=== PATIENT | male | born 1990 | race African-American/Black ===

== ENCOUNTER 2024-08-07 11:26 | Emergency (ER) | payer OTHER, SELFPAY ==
[2024-08-07 11:37] VITALS: BP 169/105
[2024-08-07 11:46] VITALS: BMI 20.4
[2024-08-07 12:24] LABS: % Basophils 0.4 % (0-2); % Eosinophils 0.8 % (0-6); % Immature Granulocytes 0.4 % (0-0.5); % Lymphocytes 11.6 % (20.5-51.1); % Monocytes 4.8 % (1.7-9.3); Absolute Basophils 0.1 10^3/uL (0-0.2); Absolute Eosinophils 0.1 10^3/uL (0-0.7); Absolute Immature Granulocytes 0.1 10^3/uL (0-0.05); Absolute Lymphocytes 1.4 10^3/uL (1.2-3.4); Absolute Monocytes 0.6 10^3/uL (0.1-0.6); Absolute Neutrophils 10.1 10^3/uL (1.4-6.5); Hematocrit 49.6 % (39.0-52.0); Hemoglobin 17.1 g/dL (13.0-18.0); Mean Corp Hgb Conc. 34.5 g/dL (33.0-37.0); Mean Corpuscular Hgb 31.4 pg (27.0-31.0); Nucleated Red Blood Cells % 0 % (-); Platelet Count 232 10^3/uL (130-400); Red Blood Cell Count 5.45 10^6/uL (4.70-6.10); Red Cell Dist. Width 11.9 % (11.5-14.5); White Blood Cell Count 12.4 10^3/uL (4.8-10.8)
[2024-08-07 12:34] LABS: ALT (SGPT) 60 U/L (0-50); AST (SGOT) 47 U/L (17-59); Albumin 4.7 g/dl (3.5-5.0); Alkaline Phosphatase 77 U/L (38-126); Blood Urea Nitrogen 18 mg/dl (9-20); Carbon Dioxide 32 mmol/L (22-30); Chloride 97 mmol/L (98-107); Estimated Creatinine Clearance 91 ml/min; Glucose 109 mg/dl (70-99); Lipase 88 U/L (23-300); Potassium 4.4 mmol/L (3.5-5.1); Sodium 141 mmol/L (135-145); Total Bilirubin 0.3 mg/dl (0.2-1.3); Total Protein 8.1 g/dl (6.3-8.2); eGFR > 60.00
[2024-08-07 13:00] VITALS: BP 138/119
[2024-08-07] MEDS: TYLENOL 1000 MG PO (13:19)
[2024-08-07] MEDS: OMNIPAQUE 50 ML PO (13:56)
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
[2024-08-07] MEDS: TORADOL 30 MG IV (15:11)
[2024-08-07 15:13] VITALS: BP 142/93
[2024-08-07 16:00] VITALS: BP 137/112
[2024-08-07] MEDS: MORPHINE SULFATE 4 MG IV (16:21)
[2024-08-07] MEDS: SENOKOT 17.2 MG PO (19:02)
[2024-08-07] MEDS: MIRALAX 17 GRAMS PO (19:02)
[2024-08-07 19:03] VITALS: BP 129/71
== END 2024-08-07 20:45 | disposition home or self-care (01) ==
LOC: EMR 11:26
PROVIDERS: EMERGENCY PHYSICIAN Emergency Medicine
DX: K59.00 Constipation, unspecified (principal)
CPT/HCPCS: 99285; 96374; 96375; 74177; 80053; 83690; 85025; 93005; Q9967

== ENCOUNTER 2024-08-07 22:28 | Emergency (ER) | payer OTHER, SELFPAY ==
[2024-08-07 22:29] VITALS: BMI 20.9
[2024-08-07 22:32] VITALS: BP 135/84
[2024-08-07] MEDS: NSS 1000 IV (23:04)
[2024-08-07 23:17] LABS: % Basophils 0.4 % (0-2); % Eosinophils 0.4 % (0-6); % Immature Granulocytes 0.4 % (0-0.5); % Lymphocytes 13.4 % (20.5-51.1); % Monocytes 8.3 % (1.7-9.3); % Neutrophils 77.1 % (42.2-75.2); Absolute Lymphocytes 1.4 10^3/uL (1.2-3.4); Absolute Monocytes 0.9 10^3/uL (0.1-0.6); Absolute Neutrophils 7.9 10^3/uL (1.4-6.5); Hematocrit 43.5 % (39.0-52.0); Hemoglobin 15.5 g/dL (13.0-18.0); Mean Corp Hgb Conc. 35.6 g/dL (33.0-37.0); Mean Corpuscular Hgb 30.2 pg (27.0-31.0); Mean Corpuscular Volume 84.8 fL (80.0-94.0); Nucleated Red Blood Cells % 0 % (-); Platelet Count 253 10^3/uL (130-400); Red Blood Cell Count 5.13 10^6/uL (4.70-6.10); Red Cell Dist. Width 11.9 % (11.5-14.5); White Blood Cell Count 10.3 10^3/uL (4.8-10.8)
[2024-08-07 23:30] LABS: INR 1.08; PT 13.8 Sec (11.4-14.6)
[2024-08-07 23:31] LABS: APTT 33.4 Sec (23.4-35.0)
[2024-08-07 23:34] LABS: ALT (SGPT) 50 U/L (0-50); AST (SGOT) 41 U/L (17-59); Albumin 4.6 g/dl (3.5-5.0); Alkaline Phosphatase 66 U/L (38-126); Blood Urea Nitrogen 19 mg/dl (9-20); Calcium 9.9 mg/dl (8.4-10.2); Carbon Dioxide 25 mmol/L (22-30); Chloride 98 mmol/L (98-107); Estimated Creatinine Clearance 93 ml/min; Glucose 97 mg/dl (70-99); Magnesium 1.9 mg/dl (1.6-2.3); Potassium 4.1 mmol/L (3.5-5.1); Sodium 137 mmol/L (135-145); Total Bilirubin 0.5 mg/dl (0.2-1.3); Total Protein 7.7 g/dl (6.3-8.2); eGFR > 60.00
[2024-08-07 23:40] LABS: D-Dimer 1.19 ug/mlFEU (0.00-0.50)
[2024-08-07 23:45] LABS: Troponin I < 0.012 ng/ml
[2024-08-08 00:06] LABS: TSH 5.38 uIU/ml (0.47-4.68)
[2024-08-08 02:01] VITALS: BP 123/77
[2024-08-08 03:16] LABS: Troponin I < 0.012 ng/ml
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
== END 2024-08-08 04:30 ==
LOC: EMR 22:28
PROVIDERS: EMERGENCY PHYSICIAN Student in an Organized Health Care Education/Training Program
DX: R07.89 Other chest pain (principal)
CPT/HCPCS: 99285; 96360; 71275; 80053; 83735; 84443; 84484; 85025; 85379; 85610; 85730; 93005; Q9967